=== PATIENT | female | born 1990 | race Two or more races ===

== ENCOUNTER 2020-09-14 08:23 | Emergency (ER) | payer MEDICAID, OTHER ==
[~2020-09-14] VITALS: Ht 157.5 cm; Wt 91.6 kg
[2020-09-14 10:20] VITALS: BP 142/75
== END 2020-09-14 11:25 | disposition home or self-care (01) ==
LOC: ER 08:23
DX: U07.1 COVID-19 (principal); J06.9 Acute upper respiratory infection, unspecified
CPT/HCPCS: 36415; 71045; 87426

== ENCOUNTER 2021-08-17 18:31 | Inpatient (IN) | payer MEDICAID ==
[~2021-08-17] VITALS: Ht 158.8 cm; Wt 93.0 kg
[2021-08-17 20:20] LABS: Basophils # (auto) 0.1 10 ^3/uL (0-0.2); Basophils % (auto) 0.6 % (0.0-2.0); Eosinophils # (auto) 0 10 ^3/uL (0-0.8); Hematocrit 42.7 % (36.0-46.0); Hemoglobin 14.3 g/dL (12.2-16.2); Lymphocytes # (auto) 2.9 10 ^3/uL (0.4-5.4); Lymphocytes % (auto) 25.6 % (10.0-50.0); Mean Corpuscular Hemoglobin 29.3 pg (28.0-32.0); Mean Corpuscular Hgb Conc. 33.4 g/dL (32.0-36.0); Mean Corpuscular Volume 87.8 fL (80.0-100.0); Monocytes # (auto) 0.6 10 ^3/uL (0-1.3); Monocytes % (auto) 5.3 % (0.0-12.0); Neutrophils # (auto) 7.7 10 ^3/uL (1.6-8.6); Neutrophils % (auto) 68.5 % (37.0-80.0); Nucleated Red Blood Cells % 0.1 %; Red Blood Cells 4.86 10^6/uL (4.0-5.20); Red Cell Distribution Width 13.1 % (11.8-14.3); White Blood Cell 11.2 10^3/uL (4.4-10.8)
[2021-08-17 20:37] LABS: Albumin 3.3 g/dL (3.4-5.0); Calcium 9.4 mg/dL (8.5-10.1); Potassium 4.1 mmol/L (3.5-5.1)
[2021-08-17 20:41] LABS: BUN/Creatinine Ratio 11.5; Bilirubin, Total 0.3 mg/dL (0.2-1.0); Total Protein 7.6 g/dL (6.4-8.2)
[2021-08-18 03:46] LABS: Urine Bacteria NONE SEEN /hpf (None Seen); Urine Blood Negative /uL (Negative); Urine Specific Gravity 1.033 (1.001-1.035); Urine WBC 4 /hpf (0 - 5)
[2021-08-18 03:56] LABS: Amylase 20 U/L (25-115); Lipase 213 U/L (73-393)
[2021-08-18] MEDS: SODIUM CHLORIDE 0.9% 1,000 ML IV SCH ×2 (05:15→13:33)
[2021-08-18] MEDS ORDERED: DEXTROSE (50%) 50ML SYRG IV PRN (05:30)
[2021-08-18] MEDS ORDERED: ONDANSETRON HCL 4 MG/2 ML VIAL IV ONE (06:00)
[2021-08-18] MEDS: InsuLIN REG 1unit/0.01ml Soln (100units/ml) SC SCH ×3 (06:00→18:31)
[2021-08-18] MEDS: ACCU-CHEK COMFORT CURVE STRIP VI SCH ×3 (06:00→18:31)
[2021-08-18] MEDS ORDERED: MORPHINE SULFATE INJECTION 2 MG/ML SYRG IV ONE ×2 (06:00→13:45)
[2021-08-18] MEDS ORDERED: FAMOTIDINE (10MG/ML) 2ML VL IV ONE (10:00)
[2021-08-18 11:15] LABS: Amphetamine Screen, Urine NEGATIVE (NEGATIVE); Barbiturate Scree,Urine NEGATIVE (NEGATIVE); Benzodiazephine Screen, Urine NEGATIVE (NEGATIVE); Cannabinoid Screen, Urine NEGATIVE (NEGATIVE); Cocaine Screen, Urine NEGATIVE (NEGATIVE); Opiate Scree,Urine NEGATIVE (NEGATIVE); Phencyclidine Screen, Urine NEGATIVE (NEGATIVE)
[2021-08-18 11:28] LABS: Alcohol, Urine < 3.0 mg/dL (0-10)
[2021-08-18] MEDS ORDERED: MORPHINE SULFATE INJECTION 2 MG/ML SYRG ONE (13:27)
[2021-08-18] MEDS: MORPHINE SULFATE INJECTION 2 MG/ML SYRG IV PRN (21:50)
[2021-08-19 02:00] VITALS: BP 138/87
[2021-08-19] MEDS: SODIUM CHLORIDE 0.9% 1,000 ML IV SCH ×4 (02:14→21:15)
[2021-08-19] MEDS: MORPHINE SULFATE INJECTION 2 MG/ML SYRG IV PRN ×4 (02:15→20:30)
[2021-08-19] MEDS ORDERED: METF-370 PO (03:22)
[2021-08-19 05:00] VITALS: BP 121/59
[2021-08-19] MEDS: InsuLIN REG 1unit/0.01ml Soln (100units/ml) SC SCH ×4 (05:45→18:20)
[2021-08-19] MEDS: ACCU-CHEK COMFORT CURVE STRIP VI SCH ×4 (05:45→18:19)
[2021-08-19 08:57] VITALS: BP 119/82
[2021-08-19 12:46] VITALS: BP 126/75
[2021-08-19 16:40] VITALS: BP 136/72
[2021-08-19 22:00] VITALS: BP 135/77
[2021-08-20] MEDS: MORPHINE SULFATE INJECTION 2 MG/ML SYRG IV PRN ×3 (00:48→17:05)
[2021-08-20 05:00] VITALS: BP 123/64
[2021-08-20] MEDS: SODIUM CHLORIDE 0.9% 1,000 ML IV SCH ×2 (05:15→13:36)
[2021-08-20] MEDS: ACCU-CHEK COMFORT CURVE STRIP VI SCH ×4 (06:00→18:11)
[2021-08-20] MEDS: InsuLIN REG 1unit/0.01ml Soln (100units/ml) SC SCH ×4 (06:00→18:10)
[2021-08-20 08:17] VITALS: BP 100/59
[2021-08-20 12:30] VITALS: BP 116/74
[2021-08-20] MEDS ORDERED: SODIUM CHLORIDE 0.9% 1,000 ML IV SCH (15:00)
[2021-08-20 16:32] VITALS: BP 122/88
[2021-08-20] MEDS ORDERED: SUCRALFATE 1 GM/10 ML ORAL SUSP PO SCH (17:00)
[2021-08-20 20:34] VITALS: BP 130/81
[2021-08-20] MEDS ORDERED: PANTOPRAZOLE 40 MG/10 ML VIAL INJ IV SCH (22:00)
== END 2021-08-20 21:40 | disposition home or self-care (01) | DRG 282 ==
LOC: ER 18:31 → OVERFLOW 08-18 05:04 → WEST WING 08-19 01:41
PROVIDERS: ADMIT Hospitalist; ATTEND Hospitalist
DX: K85.90 Acute pancreatitis without necrosis or infection, unspecified (principal); K76.0 Fatty (change of) liver, not elsewhere classified; E11.65 Type 2 diabetes mellitus with hyperglycemia; E66.01 Morbid (severe) obesity due to excess calories; Z20.822 Contact with and (suspected) exposure to COVID-19; N39.0 Urinary tract infection, site not specified; Z68.36 Body mass index [BMI] 36.0-36.9, adult; Z90.49 Acquired absence of other specified parts of digestive tract; Z79.84 Long term (current) use of oral hypoglycemic drugs
CPT/HCPCS: 36415; 74176; 74181; 80053; 80307; 80320; 81001; 81025; 82150; 82962; 83036; 83690; 84484; 85025; 87426; 96361; 96374; 96375; G0378; J1815; J2405; J3490

== ENCOUNTER 2022-08-12 13:20 | Emergency (ER) | payer MEDICAID ==
[~2022-08-12] VITALS: Ht 157.5 cm; Wt 92.8 kg
[~2022-08-12 13:20] MED LIST: METF-370 PO
[2022-08-12] MEDS ORDERED: cefTRIAXone SOD 1,000 MG VL IM ONE (14:00)
[2022-08-12] MEDS ORDERED: methylPREDNISolone SOD SUCC 125 MG/2 ML VL IM ONE (14:00)
[2022-08-12] MEDS ORDERED: IOHEXOL 300 MG/ML 100ML BOTTLE IJ ONE (16:21)
[2022-08-12] MEDS ORDERED: SODIUM CHLORIDE 0.9% 1,000 ML IV ONE ×2 (16:30→20:00)
[2022-08-12 17:36] LABS: Basophils # (auto) 0.1 10 ^3/uL (0-0.2); Basophils % (auto) 0.4 % (0.0-2.0); Eosinophils # (auto) 0 10 ^3/uL (0-0.8); Hematocrit 42.1 % (36.0-46.0); Hemoglobin 14.3 g/dL (12.2-16.2); Lymphocytes # (auto) 2.5 10 ^3/uL (0.4-5.4); Lymphocytes % (auto) 14.2 % (10.0-50.0); Mean Corpuscular Hemoglobin 29.8 pg (28.0-32.0); Mean Corpuscular Hgb Conc. 33.9 g/dL (32.0-36.0); Mean Corpuscular Volume 87.9 fL (80.0-100.0); Monocytes # (auto) 0.8 10 ^3/uL (0-1.3); Monocytes % (auto) 4.5 % (0.0-12.0); Neutrophils # (auto) 14.3 10 ^3/uL (1.6-8.6); Neutrophils % (auto) 80.9 % (37.0-80.0); Nucleated Red Blood Cells % 0.1 %; Red Blood Cells 4.79 10^6/uL (4.0-5.20); Red Cell Distribution Width 12.9 % (11.8-14.3); White Blood Cell 17.7 10^3/uL (4.4-10.8)
[2022-08-12 17:42] LABS: Albumin 4.2 g/dL (3.4-5.0); Calcium 8.9 mg/dL (8.5-10.1); Potassium 3.7 mmol/L (3.5-5.1)
[2022-08-12 17:45] LABS: BUN/Creatinine Ratio 10.2
[2022-08-12 17:47] LABS: Bilirubin, Total 0.6 mg/dL (0.2-1.0); Total Protein 7.8 g/dL (6.4-8.2)
[2022-08-12 17:50] LABS: INR 1.01 (0.9-1.15); Partial Thromboplastin Time 25.1 sec (24.6-33.4)
[2022-08-12] MEDS ORDERED: MORPHINE SULFATE INJ 2 MG/ml SYRG IV ONE (20:00)
[2022-08-12] MEDS ORDERED: metroNIDAZOLE 500MG/100ML 100 ML IV ONE (20:15)
[2022-08-12 22:07] VITALS: BP 118/55
== END 2022-08-12 22:44 | disposition short-term general hospital (02) ==
LOC: ER 13:21
DX: J02.9 Acute pharyngitis, unspecified (principal); R13.0 Aphagia; E11.9 Type 2 diabetes mellitus without complications; I10 Essential (primary) hypertension; Z90.49 Acquired absence of other specified parts of digestive tract; Z88.6 Allergy status to analgesic agent
CPT/HCPCS: 36415; 70491; 71045; 80053; 82962; 85025; 85610; 85730; 93005; 96361; 96365; 96372; 96375; 99285; J0696; J2270; J2930; J3490; J7030; Q9967